=== PATIENT | male | born 1985 | race Asian ===

== ENCOUNTER → 2021-03-16 | Outpatient (CLI) | payer OTHER ==
--- NOTE | 2021-03-16 17:35 | CONS ---
CONSULTATION DATE OF SERVICE: 03/16/2021 This 35-year-old gentleman has been evaluated in the sleep center for possible obstructive sleep apnea-hypopnea syndrome. HISTORY OF PRESENT ILLNESS/SLEEP-WAKE EVALUATION: Patient's usual sleep schedule is from 10 p.m. to 4 a.m. on weekdays and from midnight until 4 or 5 a.m. on weekends. Sometimes he has problems with falling asleep. He has a TV set in the bedroom. He sleeps on the side position. His has loud snoring and witnessed episodes of stopped breathing during sleep. The patient wakes up from sleep 3 times with nocturia, episodes of dry mouth, heartburn, gasping for air. Patient also grinds his teeth. In the morning the patient wakes up tired, has difficulties paying attention, falling asleep during the day, has problems with memory, concentration, irritability, depression, anxiety and sexual dysfunction. He may take up to 2 naps a day around 1 p.m. No history of hypnagogic hallucinations, sleep paralysis or cataplexy. Noble Sleepiness Scale is in a very high range at 18. PAST MEDICAL HISTORY: Positive for acid reflux and some borderline levels of blood sugar, anxiety and seasonal allergies. PAST SURGICAL HISTORY: None. MEDICATIONS: Omeprazole once a day 40 mg. SOCIAL HISTORY: Occasional smoker. Alcohol consumption occasional. Also patient is using marijuana. FAMILY HISTORY: Diabetes. REVIEW OF SYSTEMS: No fevers. No double vision. No recent chest pain. No shortness of breath. No abdominal pain. No bleeding episodes. No blood in the urine. No seizure episodes. Awakenings from sleep, feeling sleepy during the day. PHYSICAL EXAMINATION: GENERAL: A pleasant 35-year-old gentleman without distress. VITAL SIGNS: BP 127/80, HR 91, RR 16, height 5 feet 8 inches, weight 230.6, temperature 97.4, oxygen saturation at room air 98%. Body mass index 34.9. HEENT: PERRLA, EOMI. Evaluation of oropharynx showed tongue protrudes midline. Extremely low position of soft palate. Mallampati IV. NECK: Supple. No JVD. Thyroid is not palpable. Neck is wide, measures 17-1/2 inches in circumference. LUNGS: Clear to percussion and to auscultation. Good air exchange. No wheezing or rhonchi. HEART: S1, S2 regular. No murmurs, gallops or rubs. ABDOMEN: Slightly obese. EXTREMITIES: No clubbing or cyanosis. STONE GANG SAWYER: Awake, alert, and oriented X3. Cranial nerves 2 to 7 intact. There is no fasciculation or atrophy. noted. No focal deficits observed. IMPRESSION: 1. Loud snoring, awakenings from sleep with stopped breathing and gasping for air, extremely low position of soft palate, Mallampati IV, wide neck, 17-1/2 inches in circumference, sleepiness; obstructive sleep apnea-hypopnea syndrome. 2. Significant excessive daytime sleepiness by results of Noble Sleepiness Scale of 18, dictating necessity to include hypersomnia and narcolepsy in differential diagnosis. 3. Obesity. Body mass index 34.9. 4. Acid reflux. 5. History of anxiety. 6. Seasonal allergies. PLAN: 1. Polysomnography for evaluation of patient's breathing during sleep. 2. CPAP/BiPAP titration if sleep study confirms obstructive sleep apnea-hypopnea syndrome. 3. Preferable position during sleep on the side. 4. No driving if patient feels any sleepiness. 5. I will see patient for follow up visit to explain results of testing and following plan. 6. Patient may need a multiple sleep latency test for objective evaluation of patient's symptoms of excessive daytime sleepiness in case treatment of sleep apnea does not normalize his alertness. Thank you very much for referring this patient for consultation. Sincerely, Deandre Silverman MD, PhD, FAASM Diplomat of [employer] [place] [employer] of [facility] [place] MMODL / IJN: [id number] /
== END ==
LOC: SLEEP 15:36
PROVIDERS: ATTEND Internal Medicine
DX: G47.33 Obstructive sleep apnea (adult) (pediatric) (principal); E66.01 Morbid (severe) obesity due to excess calories; Z68.34 Body mass index [BMI] 34.0-34.9, adult; K21.9 Gastro-esophageal reflux disease without esophagitis; J30.2 Other seasonal allergic rhinitis
CPT/HCPCS: 99202

== ENCOUNTER 2022-11-07 20:05 | Observation (INO) | payer OTHER ==
[2022-11-07] MEDS ORDERED: METOCLOPRAMIDE 5 MG/ML 2 ML VIAL IVP STA (20:47)
[2022-11-07] MEDS ORDERED: SODIUM CHLORIDE 0.9% 1,000 ML IV STA (20:47)
[2022-11-07] MEDS ORDERED: ORPHENADRINE 30 MG/ML 2 ML VIAL IVP STA (20:49)
--- NOTE | 2022-11-07 22:00 | CT ---
EXAMINATION TYPE: CT angio head neck CT DLP: 2099.1 mGycm, Automated exposure control for dose reduction was used. DATE OF EXAM: 11/07/2022 9:43 PM COMPARISON: None available CLINICAL INDICATION:Male, 37 years old with history of chronic headaches TECHNIQUE: Axially acquired helical CT angiogram of the head and neck was obtained with contrast util izing 65 cc of Isovue-370 administered intravenously. Axial images are supplemented with 3D reconstru ctions which were post-processed at an independent workstation. NASCET criteria used. FINDINGS: CTA HEAD: No evidence of mass effect or midline shift. The ventricles, sulci, and cisterns are unremarkable. Th ere is a 1.1 cm hyperdense region suggested within the anterior medial right frontal lobe (series 201 , image 32). No definitive enhancement on postcontrast imaging. The visualized portions of the internal carotid arteries, middle cerebral arteries, anterior cerebral arteries, and posterior cerebral arteries are patent. The basilar and vertebral arteries are patent. CTA NECK: Right Carotid System: The common carotid artery and external carotid artery are patent. The carotid bifurcation demonstrate s no evidence of hemodynamically significant stenosis. The remaining portions of the internal carotid artery demonstrate normal size without significant narrowing. Left Carotid System: The common carotid artery and external carotid artery are patent. The carotid bifurcation demonstrate s no evidence of hemodynamically significant stenosis. The remaining portions of the internal carotid artery demonstrate normal size without significant narrowing. Vertebral arteries are patent without evidence hemodynamically significant stenosis. Left vertebral a rtery is dominant. Bovine arch. The origins of the great vessels are patent. No evidence of hemodynamically significant stenosis. IMPRESSION: 1. No evidence of dissection of the cervical internal carotid arteries or vertebral arteries or any e vidence of significant stenosis at the carotid bifurcations. 2. No evidence of high-grade stenosis or intracranial aneurysm. 3. There is suggested 1.1 cm hyperdense region within the anterior medial right frontal lobe (series 201, image 32). No definitive enhancement on postcontrast imaging. This could represent artifact vers us other etiologies such as cortical laminar necrosis. Correlation with MRI with and without IV contr ast is recommended.
[2022-11-07 22:02] LABS: Basophils % (A) 0 %; Eosinophils # (A) 0.1 k/uL (0-0.7); Eosinophils % (A) 1 %; HCT 41.1 % (39.0-53.0); Lymphocytes # (A) 1.2 k/uL (1.0-4.8); Lymphocytes % (A) 15 %; MCH 27.4 pg (25.0-35.0); MCHC 34.2 g/dL (31.0-37.0); Mean Platelet Volume 7.8; Monocytes # (A) 0.1 k/uL (0-1.0); Monocytes % (A) 1 %; Neutrophils # (A) 6.8 k/uL (1.3-7.7); Neutrophils % (A) 83 %; Platelet Count 268 k/uL (150-450); RBC 5.13 m/uL (4.30-5.90); RDW 13.1 % (11.5-15.5); WBC 8.3 k/uL (3.8-10.6)
[2022-11-07 22:22] LABS: ALT 105 U/L (4-49); AST 48 U/L (17-59); African American GFR (CKD) >90 (>60 ml/min/1.73 sqM); Albumin 4.2 g/dL (3.5-5.0); Alkaline Phosphatase 92 U/L (38-126); Anion Gap 10 mmol/L; Blood Urea Nitrogen 14 mg/dL (9-20); C Reactive Protein 0.9 mg/dL (<1.0); Calcium 9.2 mg/dL (8.4-10.2); Carbon Dioxide 24 mmol/L (22-30); Chloride 103 mmol/L (98-107); Glucose 173 mg/dL (74-99); Non-African American GFR(CKD) >90 (>60 ml/min/1.73 sqM); Potassium 4.5 mmol/L (3.5-5.1); Sodium 137 mmol/L (137-145); Total Bilirubin 0.5 mg/dL (0.2-1.3); Total Protein 7.6 g/dL (6.3-8.2)
[2022-11-07] MEDS ORDERED: NALOXONE 0.4 MG/ML 1 ML VIAL IV PRN (22:35)
[2022-11-07] MEDS ORDERED: ACETAMINOPHEN TAB 325 MG TAB PO PRN (22:35)
[2022-11-07] MEDS ORDERED: HYDROmorphone 2 MG TAB PO PRN (22:35)
[2022-11-07] MEDS ORDERED: ONDANSETRON 4 MG/2 ML VIAL IVP PRN (22:35)
--- NOTE | 2022-11-07 22:42 | ED ---
Headache HPI - General Chief Complaint: Headache Stated Complaint: Headache Time Seen by Provider: 11/07/22 20:26 Mode of arrival: ambulatory Limitations: no limitations - History of Present Illness Initial Comments: Patient is a 37-year-old male presenting with chief complaint of headache. Patient states that he has had migraine headaches for years, however over the past few months they have grown worse and more consistent. Patient states that he has daily severe headaches. He is taking Motrin and Tylenol daily without relief. Admits to intermittent nausea and vomiting. Patient is following with neurology, his appointment was canceled today and due to his severe pain he reportedly [facility]. He had a CT performed which showed a subtle hypodensity within the centrum semiovale right frontal lobe. He was not satisfied with the care he was receiving there, he requested his records reported to our ER for further evaluation. He denies any numbness, tingling, vision or hearing changes, fever, chills, chest pain, difficulty breathing, palpitations, syncope, seizures. - Related Data Allergies Allergy/AdvReac Type Severity Reaction Status Date / Time No Known Allergies Allergy Verified 11/07/22 20:20 Review of Systems ROS Statement: Those systems with pertinent positive or pertinent negative responses have been documented in the HPI. ROS Other: All systems not noted in ROS Statement are negative. Past Medical History Past Medical History: GERD/Reflux Additional Past Medical History / Comment(s): migraine, History of Any Multi-Drug Resistant Organisms: None Reported Past Surgical History: No Surgical Hx Reported Past Psychological History: No Psychological Hx Reported Smoking Status: Never smoker Past Alcohol Use History: Daily Past Drug Use History: Marijuana General Exam Limitations: no limitations General appearance: alert, in no apparent distress Head exam: Present: atraumatic, normocephalic, normal inspection Eye exam: Present: normal appearance, PERRL, EOMI. Absent: scleral icterus, conjunctival injection, periorbital swelling Pupils: Present: normal accommodation Neck exam: Present: normal inspection, full ROM. Absent: tenderness, meningismus Respiratory exam: Present: normal lung sounds bilaterally. Absent: respiratory distress, wheezes, rales, rhonchi, stridor Cardiovascular Exam: Present: regular rate, normal rhythm, normal heart sounds. Absent: systolic murmur, diastolic murmur, rubs, gallop, clicks Extremities exam: Present: normal inspection, full ROM Neurological exam: Present: alert, oriented X3, CN II-XII intact Expanded Patient oriented to: Present: person, place, time Speech: Present: fluid speech Cranial nerves: EOM's Intact: Normal, Facial Sensation: Normal Sensory exam: Upper Extremity Light Touch: Normal, Lower Extremity Light Touch: Normal Motor strength exam: RUE: 5, LUE: 5, RLE: 5, LLE: 5 Eye Response: (4) open spontaneously Motor Response: (6) obeys commands Verbal Response: (5) oriented [place] Total: 15 Psychiatric exam: Present: normal affect, normal mood Skin exam: Present: warm, dry, intact, normal color. Absent: rash Course Vital Signs 11/07/22 20:15 Temperature 97.6 F Pulse Rate 72 Respiratory 18 Rate Blood Pressure 131/80 O2 Sat by Pulse 96 Oximetry Medical Decision Making - Medical Decision Making Was pt. sent in by a medical professional or institution (, PA, STORM WINDOW INSTALLER, urgent care, hospital, or long term...) When possible be specific @ -No Did you speak to anyone other than the patient for history (EMS, parent, family, police, friend...)? What history was obtained from this source @ -No Did you review nursing and triage notes (agree or disagree)? Why? @ -I reviewed and agree with nursing and triage notes Were old charts reviewed (outside hosp., previous admission, EMS record, old EKG, old radiological studies, urgent care reports/EKG's, long term records)? Report findings @ -No old charts were reviewed Differential Diagnosis (chest pain, altered mental status, abdominal pain women, abdominal pain men, vaginal bleeding, weakness, fever, dyspnea, syncope, headache, dizziness, GI bleed, back pain, seizure, CVA, palpatations, mental health)? @ -MDM Differential Headache: Migraine, tension, cluster, carbon monoxide, central venous thrombosis, pension karma temporal arteritis, acute closure glaucoma, intercranial hemorrhage, mastoiditis, sinusitis, head injury this is not meant to be an all-inclusive list. EKG interpreted by me (3pts min.). @ -As above X-rays interpreted by me (1pt min.). @ -None done CT interpreted by me (1pt min.). @ -No, Radiologist report is reviewed. There is suggested 1.1 cm hyperdense region within the anterior medial right frontal lobe. No definitive enhancement on postcontrast imaging. This could represent artifact versus other etiologies such as cortical laminar necrosis correlation with MRI with and without IV contrast is recommended. No evidence of high-grade stenosis or intracranial aneurysm. No evidence of dissection of the cervical internal U/S interpreted by me (1pt. min.). @ -None done What testing was considered but not performed or refused? (CT, X-rays, U/S, labs)? Why? @ -None What meds were considered but not given or refused? Why? @ -None Did you discuss the management of the patient with other professionals (professionals i.e. Dr., PA, STORM WINDOW INSTALLER, lab, RT, psych nurse, social organization professor, sports lawyer, teacher, learning and development officer, director of casework)? Give summary @ -Discussed with neurologist Dr. Gold and admitting physician Dr. Nuno Was smoking cessation discussed for >3mins.? @ -No Was critical care preformed (if so, how long)? @ -No Were there social determinants of health that impacted care today? How? (Homelessness, low income, unemployed, alcoholism, drug addiction, transportation, low edu. Level, literacy, decrease access to med. care, fdc, rehab)? @ -No Was there de-escalation of care discussed even if they declined (Discuss DNR or withdrawal of care, Hospice)? DNR status @ -No What co-morbidities impacted this encounter? (DM, HTN, Smoking, COPD, CAD, Ca ncer, CVA, ARF, Chemo, Hep., AIDS, mental health diagnosis, sleep apnea, morbid obesity)? @ -None Was patient admitted / discharged? Hospital course, mention meds given and route, prescriptions, significant lab abnormalities, going to OR and other pertinent info. @ -She is a 37-year-old male presenting with chief complaint of headache. Esme castaneda was evaluated at [facility] today for the same complaint, was noted to have a hypodense area of the frontal lobe on CT, patient left as he was not pleased with his care there. On physical examination there are no focal neurological deficits. Patient is continuing to complain of headache despite receiving Dilaudid, Toradol, Solu-Medrol, Benadryl, Zofran, and Fioricet at [facility]. CTA showed 1.1 cm hyperdense region within the frontal lobe. I discussed this finding with neurologist personnel associate Dr. Gold, he recommended admission for further evaluation and MRI. Patient is agreeable with this plan. I spoke with Dr. Nuno who accepted admission. Dr. Gold was placed on consult. I discussed this case with my attending Dr. Crystal. Undiagnosed new problem with uncertain prognosis? @ -No Drug Therapy requiring intensive monitoring for toxicity (Heparin, Nitro, Insulin, Cardizem)? @ -No Were any procedures done? @ -No Diagnosis/symptom? @ -Intractable headache with abnormal CT Acute, or Chronic, or Acute on Chronic? @ -Acute Uncomplicated (without systemic symptoms) or Complicated (systemic symptoms)? @ -Complicated Side effects of treatment? @ -No Exacerbation, Progression, or Severe Exacerbation? @ -No Poses a threat to life or bodily function? How? (Chest pain, [place], [place], pneumonia, PE, COPD, DKA, ARF, appy, cholecystitis, CVA, Diverticulitis, Homicidal, Suicidal, threat to staff... and all critical care pts) @ -Potentially, further neurology workup is needed - Lab Data Result diagrams: 11/07/22 21:50 11/07/22 21:50 Lab Results 11/07/22 11/07/22 Range/Units 21:50 21:50 WBC 8.3 (3.8-10.6) k/uL RBC 5.13 (4.30-5.90) m/uL Hgb 14.0 (13.0-17.5) gm/dL Hct 41.1 (39.0-53.0) % MCV 80.0 (80.0-100.0) fL MCH 27.4 (25.0-35.0) pg MCHC 34.2 (31.0-37.0) g/dL RDW 13.1 (11.5-15.5) % Plt Count 268 (150-450) k/uL MPV 7.8 Neutrophils % 83 % Lymphocytes % 15 % Monocytes % 1 % Eosinophils % 1 % Basophils % 0 % Neutrophils # 6.8 (1.3-7.7) k/uL Lymphocytes # 1.2 (1.0-4.8) k/uL Monocytes # 0.1 (0-1.0) k/uL Eosinophils # 0.1 (0-0.7) k/uL Basophils # 0.0 (0-0.2) k/uL Sodium 137 (137-145) mmol/L Potassium 4.5 (3.5-5.1) mmol/L Chloride 103 (98-107) mmol/L Carbon Dioxide 24 (22-30) mmol/L Anion Gap 10 mmol/L BUN 14 (9-20) mg/dL Creatinine 0.82 (0.66-1.25) mg/dL Est GFR (CKD-EPI)AfAm >90 (>60 ml/min/1.73 sqM) Est GFR (CKD-EPI)NonAf >90 (>60 ml/min/1.73 sqM) Glucose 173 H (74-99) mg/dL Calcium 9.2 (8.4-10.2) mg/dL Total Bilirubin 0.5 (0.2-1.3) mg/dL AST 48 (17-59) U/L ALT 105 H (4-49) U/L Alkaline Phosphatase 92 (38-126) U/L C-Reactive Protein 0.9 (<1.0) mg/dL Total Protein 7.6 (6.3-8.2) g/dL Albumin 4.2 (3.5-5.0) g/dL Disposition Clinical Impression: Intractable headache, Abnormal CT of brain Disposition: ADMITTED IP TO THIS [facility] Condition: Fair Referrals: Vinicio Fried MD [Primary Care Provider] - 1-2 days Time of Disposition: 22:40 Decision to Admit Reason: Admit from EC Decision Date: 11/07/22 Decision Time: 22:40
[2022-11-07 22:48] LABS: Erythrocyte Sedimentation Rate 25 mm/hr (0-15)
[2022-11-07] MEDS: HYDROmorphone 1 MG/ML 1 ML SYRINGE IVP PRN (23:56)
[2022-11-08 08:49] VITALS: RESP 16
[2022-11-08] MEDS: HYDROmorphone 1 MG/ML 1 ML SYRINGE IVP PRN ×3 (09:14→23:28)
[2022-11-08] MEDS ORDERED: diphenhydrAMINE 50 MG/ML 1 ML VIAL IVP STA (10:08)
[2022-11-08] MEDS ORDERED: PROCHLORPERAZINE INJ 10 MG/2 ML VIAL IVP STA (10:09)
[2022-11-08] MEDS ORDERED: methylPREDNISolone SOD SUCCIN 500 MG in SODIUM CHLORIDE 0.9% 100 ML IVPB STA (10:14)
--- NOTE | 2022-11-08 10:23 | P.CNNES ---
History of Present Illness Consult date: 11/08/22 Requesting physician: Keon Ho Reason for Consult: intractable headache, abnormal CT History of Present Illness: This is a 37-year-old gentleman who presented to our facility because of headache. According to the patient that he's been having headache for years and it's over the bilateral frontal region that radiates to the back of the brain. He feels is almost on a daily basis and it's throbbing, applicant sensation at. He does have photophobia, phonophobia. He has occasional nausea and vomiting in the past. He rates the headache currently is 10 and he states that he can get up to 10 again he's been having for years and he feels somewhat worsening in the last couple days. The headache can last for hours to days. He has been taking [id number] medication of Aleve. He was evaluated by his neurologist about a month ago Dr. Harvey and he was placed on propranolol and he is on propranolol 60 mg daily for headache prevention. Also he was on neurogenic as an abortive and he stated that as there is no benefit from it. It seems that his insurance declined at CT of the head as well as MRI as an outpatient because of his insurance according to the patient. Because of his worsening of the headache he notified his neurologist yesterday and she told him not to go the emergency department. He went to an outside facility ([facility]) and that according to patient he was given migraine cocktail and as well as had the CT of the brain but he was waiting in the room for hours and he was not being evaluated afterwards so he left the hospital and decided to come to our facility. She stated that that he denies of any focal weakness, visual disturbance, difficulty walking, difficulty swallowing or getting his words out. He denies any aura prior to the headache. Denies any family history of migraine. Some of the workup during our facility consisted of: ESR is 25 otherwise CBC with differential is unremarkable Chemistry panel seems unremarkable and the CRP is within normal limits. CT angiography of the head and neck is reported as no evidence of dissection of the cervical internal carotid arteries or vertebral arteries or any evidence of significant stenosis at the carotid bifurcation. No evidence of high-grade stenosis or intracranial aneurysm. There is suggested 1.1 cm hyperdense region in the anterior medial right frontal lobe. No definite of enhancement on post contrast imaging. This could represent artifact versus other etiologies such as cortical laminar necrosis. Correlation with MRI with and without is recommended. According to the patient this finding was similar to the outside hospital finding he had yesterday. Review of Systems Review of system: The 12 point system was reviewed and apparent positive and negative per HPI. Past Medical History Past Medical History: GERD/Reflux Additional Past Medical History / Comment(s): migraine, History of Any Multi-Drug Resistant Organisms: None Reported Past Surgical History: No Surgical Hx Reported Additional Past Surgical History / Comment(s): foot rash Additional Past Anesthesia/Blood Transfusion Reaction / Comment(s): pt has never recieved Past Psychological History: No Psychological Hx Reported Smoking Status: Never smoker Past Alcohol Use History: Daily Past Drug Use History: Marijuana Medications and Allergies Home Medications Medication Instructions Recorded Confirmed Type ALPRAZolam [Xanax] 0.5 mg PO TID PRN 11/08/22 11/08/22 History Ammonium Lactate Lotion 1 applic TOPICAL BID PRN 11/08/22 11/08/22 History [Lac-Hydrin 12% Lotion] Cholecalciferol [Vitamin D3 (25 50 mcg PO DAILY 11/08/22 11/08/22 History Mcg = 1000 Iu)] Ciclopirox Olamine [Loprox 0.77% 1 applic TOPICAL BID PRN 11/08/22 11/08/22 History cream] Clobetasol Propionate [Temovate 1 applic TOPICAL BID PRN 11/08/22 11/08/22 History 0.05% Cream] Gentamicin Sulfate [Gentamicin 1 applic TOPICAL BID PRN 11/08/22 11/08/22 History Sulfate 0.1%] Magnesium Chloride [Slow-Mag] 64 mg PO DAILY 11/08/22 11/08/22 History Omeprazole 40 mg PO AC-BRKFST 11/08/22 11/08/22 History Pimecrolimus [Elidel] 1 applic TOPICAL BID PRN 11/08/22 11/08/22 History Pregabalin [Lyrica] 50 mg PO BID 11/08/22 11/08/22 History Propranolol LA [Inderal LA] 60 mg PO DAILY 11/08/22 11/08/22 History hydrOXYzine HCL [Atarax] 10 mg PO HS PRN 11/08/22 11/08/22 History Allergies Allergy/AdvReac Type Severity Reaction Status Date / Time cat dander Allergy Dyspnea Verified 11/08/22 08:42 dog dander Allergy Dyspnea Verified 11/08/22 08:42 seasonal Allergy Dyspnea Uncoded 11/08/22 08:42 Physical Examination - Vital Signs Vital Signs: Vital Signs Temp Pulse Pulse Resp BP BP Pulse Ox 11/08/22 07:00 98.9 F 69 16 122/67 97 11/08/22 02:44 97.7 F 66 15 106/55 98 11/08/22 01:28 17 11/07/22 23:37 97.8 F 67 17 118/74 96 11/07/22 22:20 71 16 118/67 96 11/07/22 20:15 97.6 F 72 18 131/80 96 Intake and Output 11/07/22 11/08/22 11/08/22 22:59 06:59 14:59 Intake Total 240 Balance 240 Intake: Oral 240 Other: # Voids 2 Weight 104.326 kg GENERAL: The patient is lying in bed and is in moderate acute distress. CHEST: The heart rate is regular rate rhythm. No murmurs to auscultation. LUNG: Clear to auscultation bilaterally no wheezing noted throughout. Not labored breathing. ABDOMEN/GI: Bowel sounds present in all 4 quadrants. No tenderness to palpation throughout. NEUROLOGICAL: Higher mental function: The patient is awake, alert, oriented to self, place and time. Patient is following commands. No aphasia and no neglect. Cranial nerves: Has moderate to severe photophobia and kept on closing his eyes to light. But the pupils are round, equal and reactive to light and accommod ation. Unable to perform fundoscopy since has kept closing his eyes. Visual zarate are full to confrontation throughout. Extraocular movement is intact no nystagmus is noted. Facial sensation is normal to touch throughout. The facial strength is normal throughout. Hearing is normal bilaterally to hand rub. Tongue is midline and moved [id number] without any difficulty. No dysarthria is noted. Shoulder shrug is normal bilaterally. Motor: Gait is normal. The strength is 5 over 5 throughout. Normal tone and bulk. Cerebellum: Normal finger to nose heel to chin bilaterally. Sensation: Sensation is normal to touch throughout. Reflexes (right/left): 2+ throughout. Plantars are downgoing bilaterally. Results - Laboratory Findings CBC and BMP: 11/07/22 21:50 11/07/22 21:50 Abnormal Lab Findings: Abnormal Labs 11/07/22 11/07/22 21:50 21:50 ESR 25 H Glucose 173 H ALT 105 H Assessment and Plan Assessment: Status Migrainosus History of migraine without aura for years Fibromyalgia Hypertension Plan: I ordered MRI of the brain w/ and w/o because of the abnormal finding on CT angiography which the there was 1.1 cm hyperdense region in the anterior medial right frontal lobe which could be artifact versus cortical laminar necrosis that's reported. I started the patient on Topamax 50 mg 1 tablet twice a day as a migraine prophylaxis and the patient was notified of the side effects of the medication. I notified him that he can take prophylaxis of gabapentin as abortive and that helps also with neuropathy and neck to be coordinated with his neurologist as an outpatient since he's already on Lyrica. I gave him a migraine cocktail of Compazine, Solu-Medrol and Benadryl. Defer the rest of the medical management to the primary team Upon discharge patient needs to follow-up with his neurologist as an outpatient within 1-2 weeks, Dr. Harvey. The plan was discussed with the patient and the the primary team's nurse practitioner Thank you for the Consultation Time with Patient: Greater than 30
[2022-11-08] MEDS: TOPIRAMATE 25 MG TAB PO SCH ×2 (10:38→19:58)
[2022-11-08] MEDS ORDERED: ALPRAZolam 0.5 MG TAB PO STA (12:19)
[2022-11-08] MEDS ORDERED: LORazepam 2 MG/ML INJ IV PRN (12:19)
[2022-11-08] MEDS: KETOROLAC 15 MG/ML 1 ML VIAL IVP PRN (14:40)
--- NOTE | 2022-11-08 15:48 | P.HPIM ---
History of Present Illness H&P Date: 11/08/22 This is a 37-year-old male who presented to the emergency department with complaints of headache. Patient does have history of migraine headaches however they have been becoming more persistent and worse over the last few months. Patient reports he follows with Dr. Fried in the outpatient setting with a past medical history of hypertension and migraines. Patient also reports he follows with Dr. Harvey neurologist. Patient was at [facility] and did not like her appreciate the care he was receiving as patient reports "lack of care "and decided to leave and came to this hospital for further evaluation. In the ER patient had a CT angiography of head and neck which showed no evidence of diss ection of the cervical internal carotid arteries or vertebral arteries are any evidence of significant stenosis at the carotid bifurcations, no evidence of high-grade stenosis or intracranial aneurysm, there is a suggested 1.1 cm hyperdense region within the anterior medial right frontal lobe with no definitive enhancement on postcontrast and no definitive enhancement on postcontrast imaging could represent artifact versus other etiologies such as cortical laminar necrosis and correlate with MRI. Patient was admitted with neurology evaluation. Neurology evaluated this morning ordered MRI which is pending. Labs reviewed on admission is within normal limits other than an ESR of 25 and blood glucose is 173 and ALT is 105. CRP is negative. Patient denies history of diabetes although random blood sugar was elevated and will obtain hemoglobin A1c. Patient denies tobacco use or illicit drug use other than smokes marijuana occasionally and uses alcohol daily. Patient was admitted under observation for neurological evaluation. Review Of Systems: Constitutional: No fever, no chills, no night sweats. No weight change. No weakness, fatigue or lethargy. No daytime sleepiness. EENT: Reports headache that are becoming more frequent and increased in intensity. No blurred vision or double vision, no loss of vision. No loss of Hearing, no ringing in the ears, no dizziness. No nasal drainage or congestion. No epistaxis. No sore throat. Lungs: No shortness of breath, cough, no sputum production. No wheezing. Cardiovascular: No chest pain, no lower extremity edema. No palpitations. No paroxysmal nocturnal dyspnea. No orthopnea. No lightheadedness or dizziness. No syncopal episodes. Abdominal: No abdominal pain. No nausea, vomiting. No diarrhea. No constipation. No bloody or tarry stools.. No loss of appetite. Genitourinary: No dysuria, increased frequency, urgency. No urinary retention. Musculoskeletal: No myalgias. No muscle weakness, no gait dysfunction, no frequent falls. No back pain. No neck pain. Integumentary: No wounds, no lesions. No rash or pruritus. No unusual bruising. No change in hair or nails. Neurologic: No aphasia. No facial droop. No change in mentation. No head injury. Reports more intense headache and more frequent migraines. No paralysis. No paresthesia. Psychiatric: No depression. Reports anxiety. No mood swings. Endocrine: No abnormal blood sugars. No weight change. No excessive sweating or thirst. No cold intolerance. PHYSICAL EXAMINATION: GENERAL: The patient is alert and oriented x4, Well developed, well nourished. Obese HEENT: Pupils are round and equally reacting to light. EOMI. no scleral icterus. No conjunctival pallor. Normocephalic, atraumatic. No pharyngeal erythema. No thyromegaly. CARDIOVASCULAR: S1 and S2 muffled PULMONARY: Breath sounds clear to auscultation with no wheezing or rhonchi noted. ABDOMEN: soft. Nontender on exam. obese. non-distended, normoactive bowel sounds. No palpable organomegaly. MUSCULOSKELETAL: No joint swelling or deformity. EXTREMITIES: No cyanosis, clubbing, or pedal edema. NEUROLOGICAL: Gross neurological examination did not reveal any focal deficits. SKIN: No rashes. Assessment: Intractable Headache with history of migraines Gastroesophageal reflux disease THC use Hypertension Elevated random glucose with no history of diabetes Anxiety Obesity with a BMI of 33 GI prophylaxis DVT prophylaxis Full code Plan: Recommend to continue with current medications and management with neurology on consultation. Patient was at [facility] had a CT of the brain which showed a hyperdensity of the frontal lobe and had CT angiogram of the head and neck here showing a 1.1 cm hyperdensity in the anterior medial right frontal lobe and neurology recommending MRI. MRI was ordered and pending at this time. Patient does have anxiety will order Xanax and given a one-time dose so the MRI can be done. Unsure of when this will be done sometime today nursing staff reported. Patient was given a migraine cocktail of Solu-Medrol, Benadryl, and Compazine. Patient being started on Topamax as well. Patient instructed to follow-up with his neurologist Dr. Harvey in the outpatient setting. Will await MRI and if negative will likely discharge later today. Patient did have a elevated random glucose on labs of 173 with no history of diabetes, will obtain hemoglobin A1c. Will await MRI report which is currently pending at this time. The impression and plan of care has been dictated by Shanon Severino, nurse practitioner as directed. Dr. Mary GAY I have performed a history and examination and MDM of this patient, discussed t he same with the dictator, and agree with the dictator's assessment and plan as written ,documented as a scribe. Based on total visit time, I have performed more than 50% of the visit. Any additional findings or plans will be noted. Past Medical History Past Medical History: GERD/Reflux Additional Past Medical History / Comment(s): migraine, History of Any Multi-Drug Resistant Organisms: None Reported Past Surgical History: No Surgical Hx Reported Additional Past Surgical History / Comment(s): foot rash Additional Past Anesthesia/Blood Transfusion Reaction / Comment(s): pt has never recieved Past Psychological History: No Psychological Hx Reported Smoking Status: Never smoker Past Alcohol Use History: Daily Past Drug Use History: Marijuana Medications and Allergies Home Medications Medication Instructions Recorded Confirmed Type ALPRAZolam [Xanax] 0.5 mg PO TID PRN 11/08/22 11/08/22 History Ammonium Lactate Lotion 1 applic TOPICAL BID PRN 11/08/22 11/08/22 History [Lac-Hydrin 12% Lotion] Cholecalciferol [Vitamin D3 (25 50 mcg PO DAILY 11/08/22 11/08/22 History Mcg = 1000 Iu)] Ciclopirox Olamine [Loprox 0.77% 1 applic TOPICAL BID PRN 11/08/22 11/08/22 History cream] Clobetasol Propionate [Temovate 1 applic TOPICAL BID PRN 11/08/22 11/08/22 History 0.05% Cream] Gentamicin Sulfate [Gentamicin 1 applic TOPICAL BID PRN 11/08/22 11/08/22 History Sulfate 0.1%] Magnesium Chloride [Slow-Mag] 64 mg PO DAILY 11/08/22 11/08/22 History Omeprazole 40 mg PO AC-BRKFST 11/08/22 11/08/22 History Pimecrolimus [Elidel] 1 applic TOPICAL BID PRN 11/08/22 11/08/22 History Pregabalin [Lyrica] 50 mg PO BID 11/08/22 11/08/22 History Propranolol LA [Inderal LA] 60 mg PO DAILY 11/08/22 11/08/22 History hydrOXYzine HCL [Atarax] 10 mg PO HS PRN 11/08/22 11/08/22 History Allergies Allergy/AdvReac Type Severity Reaction Status Date / Time cat dander Allergy Dyspnea Verified 11/08/22 08:42 dog dander Allergy Dyspnea Verified 11/08/22 08:42 seasonal Allergy Dyspnea Uncoded 11/08/22 08:42 Physical Exam Vitals: Vital Signs Temp Pulse Pulse Resp BP BP Pulse Ox 11/08/22 07:00 98.9 F 69 16 122/67 97 11/08/22 02:44 97.7 F 66 15 106/55 98 11/08/22 01:28 17 11/07/22 23:37 97.8 F 67 17 118/74 96 11/07/22 22:20 71 16 118/67 96 11/07/22 20:15 97.6 F 72 18 131/80 96 Intake and Output 11/07/22 11/08/22 11/08/22 22:59 06:59 14:59 Intake Total 240 Balance 240 Intake: Oral 240 Other: # Voids 2 Weight 104.326 kg Results CBC & Chem 7: 11/07/22 21:50 11/07/22 21:50 Labs: Abnormal Lab Results - Last 24 Hours (Table) 11/07/22 11/07/22 Range/Units 21:50 21:50 ESR 25 H (0-15) mm/hr Glucose 173 H (74-99) mg/dL ALT 105 H (4-49) U/L Thrombosis Risk Factor Assmnt - Choose All That Apply Any of the Below Risk Factors Present?: Yes Each Factor Represents 1 point: Obesity (BMI >25) Other Risk Factors: No Other congenital or acquired thrombophilia - If yes, enter type in comment: No Thrombosis Risk Factor Assessment Total Risk Factor Score: 1 Thrombosis Risk Factor Assessment Level: Low Risk Assessment and Plan Time with Patient: Greater than 30
--- NOTE | 2022-11-08 15:56 | MR ---
EXAMINATION TYPE: MR brain wo/w con DATE OF EXAM: 11/08/2022 3:48 PM CLINICAL INDICATION:Male, 37 years old with history of headache with abnormal CT; COMPARISON: CT head neck 11/07/2021. TECHNIQUE: Multi planar, multi sequence imaging was performed through the brain including: T1, T2, In version recovery, susceptibility weighted imaging and gradient echo imaging and Diffusion weighted im aging. The patient was then given intravenous contrast and multi planar, T1 fat-saturation images wer e obtained. IV Contrast: 9.5 cc Gadavist FINDINGS: Dilation of the ventricular systems which is equal bilateral. No evidence for transependymal edema to suggest hydrocephalus. Diffusion-weighted imaging shows no evidence of restricted diffusion to sugge st acute/subacute infarct. Intracranial arterial flow voids are maintained. Midline structures show n o abnormality. The susceptibility weighted images do not reveal any evidence for micro-hemorrhage. Af ter administration of gadolinium, no abnormal enhancement is seen. The bone marrow signal is within normal limits. Paranasal sinuses and mastoid air cells: Mild scattered paranasal sinus disease. Visualized orbits: Orbital contents are intact. IMPRESSION: 1. No finding to correlate with hypodense mass seen on CT. Finding likely enrollment representative of beam hard ening artifact 2. No evidence of intracranial mass, acute/subacute infarct, or abnormal enhancement. 3. Dilation of the ventricular systems which is more than would be excepted for a patient 37 years ol d, and no evidence for transependymal flow to suggest hydrocephalus.
[2022-11-09] MEDS: HYDROmorphone 1 MG/ML 1 ML SYRINGE IVP PRN (05:44)
[2022-11-09] MEDS: KETOROLAC 15 MG/ML 1 ML VIAL IVP PRN (08:47)
[2022-11-09] MEDS: TOPIRAMATE 25 MG TAB PO SCH (08:48)
[2022-11-09] MEDS ORDERED: SENNOSIDES 8.6 MG TAB PO SCH (09:00)
[2022-11-09] MEDS ORDERED: SUMAtriptan succinate 50 MG TAB PO STA (09:29)
[2022-11-09] MEDS ORDERED: BUTALB/APAP/CAFF 50-325-40MG TAB PO STA (09:29)
--- NOTE | 2022-11-09 11:50 | P.PN ---
Subjective Progress Note Date: 11/09/22 The patient is seen at bedside and states his headache has mildly improved compared to yesterday. Denies of nausea or vomiting. Denies of visual disturbance or focal deficits. He wanted to clarify that he has been having headache for years but worsening over past couple weeks to months. Patient is afebrile. Objective - Vital Signs Vital signs: Vital Signs Temp 97.9 F 11/09/22 07:00 Pulse 70 11/09/22 07:00 Resp 16 11/09/22 07:00 BP 121/77 11/09/22 07:00 Pulse Ox 100 11/09/22 07:00 FiO2 Intake & Output 11/08/22 11/09/22 11/09/22 18:59 06:59 18:59 Intake Total 240 Balance 240 Intake: Oral 240 Other: # Voids 4 2 - Exam GENERAL: The patient is lying in bed and is in moderate acute distress. NEUROLOGICAL: Higher mental function: The patient is awake, alert, oriented to self, place and time. Patient is following commands. No aphasia and no neglect. Cranial nerves: Has moderate photophobia and kept on closing his eyes to light. But the pupils are round, equal and reactive to light and accommodation. Unable to perform fundoscopy since has kept closing his eyes. Visual zarate are full to confrontation throughout. Extraocular movement is intact no nystagmus is noted. Facial sensation is normal to touch throughout. The facial strength is normal throughout. Hearing is normal bilaterally to hand rub. Tongue is midline and moved [id number] without any difficulty. No dysarthria is noted. Shoulder shrug is normal bilaterally. Motor: Gait is deferred. The strength is 5 over 5 throughout. Normal tone and bulk. Cerebellum: Normal finger to nose heel to chin bilaterally. Sensation: Sensation is normal to touch throughout. Reflexes (right/left): 2+ throughout. Plantars are downgoing bilaterally. Some of the workup during our facility consisted of: ESR is 25 otherwise CBC with differential is unremarkable Chemistry panel seems unremarkable and the CRP is within normal limits. CT angiography of the head and neck is reported as no evidence of dissection of the cervical internal carotid arteries or vertebral arteries or any evidence of significant stenosis at the carotid bifurcation. No evidence of high-grade stenosis or intracranial aneurysm. There is suggested 1.1 cm hyperdense region in the anterior medial right frontal lobe. No definite of enhancement on post contrast imaging. This could represent artifact versus other etiologies such as cortical laminar necrosis. Correlation with MRI with and without is recommended. According to the patient this finding was similar to the outside hospital finding he had yesterday. MRI the brain is reported as no findings correlate with hypodense mass seen on the CT. Findings likely contact representative of beam hardening artifact. No evidence of intracranial mass, acute/subacute infarct or abnormal enhancement. Dilation of the ventricular system which is more than will be expected for patient 37 years old, and no evidence for transfers at that time I'll flow to suggest hydrocephalus. I personally reviewed the MRI and I do agree there is no mass, enhancement, stroke that acute or subacute or old. I do feel it the ventricles are enlarged throughout more than his age and comparison to prior imaging. - Labs CBC & Chem 7: 11/07/22 21:50 11/07/22 21:50 Labs: Abnormal Lab Results - Last 24 Hours (Table) 11/09/22 Range/Units 05:14 Hemoglobin A1c 7.0 H (0.0-6.0) % Assessment and Plan Assessment: Status Migrainosus Enlarged diffuse ventricles compared to his age/hydrocephalus: Unknown cause. Unsure if chronic since has history of meningitis as child. History of migraine without aura for years but worsening over past couple weeks to months Fibromyalgia Hypertension Plan: I recommended Lumbar puncture to rule out elevated Intracranial pressure but patient refused Lumbar Puncture. He also refused later to the nurse. But agreed on pursing CT Cervical, thoracic and lumbar to rule out any spinal tumor. Patient has diffuse enlarge ventricles compared to his age/hydrocephalus of unknown cause. Unsure if chronic since has history of meningitis as child. If CT of spinal cord is negative for tumor or significant change then patient wants further neurological work-up with his outpatient neurologist. I will increase Topamax 50 mg 1 tablet twice a day to 100mg bid as a migraine prophylaxis and the patient was notified of the side effects of the medication. Will give him Imitrex 50mg once and spoke with primary N.P. with Imitrex 50mg with max dose of 9 tablets in a month. Also will give him Fioricet one time. Defer the rest of the medical management to the primary team Upon discharge patient needs to follow-up with his neurologist as an outpatient within 1-2 weeks, Dr. Harvey. The plan was discussed with the patient and the the primary team's nurse pr actitioner Time with Patient: Less than 30
[2022-11-09] MEDS ORDERED: KETOROLAC 15 MG/ML 1 ML VIAL IVP STA (11:59)
[2022-11-09 14:25] VITALS: BP 139/90; PULSE 82; TEMP 97.7
--- NOTE | 2022-11-09 15:31 | CT ---
EXAMINATION TYPE: CT CervThorLumbar spine wo/wco DATE OF EXAM: 11/09/2022 COMPARISON: MRI brain 11/08/2022 HISTORY: 37-year-old male Hydrocephalus. Rule out spinal tumor. TECHNIQUE: Contiguous axial scanning of the cervical, thoracic, and lumbar spine performed without an d with IV Contrast, patient injected with 70ml mL of Isovue 300. Coronal and sagittal reconstructions performed. CT DLP: 4939.9 mGycm Automated exposure control for dose reduction was used. FINDINGS: CERVICAL SPINE: Bilateral palatine tonsillar hypertrophy. Punctate calcifications in both sides suggests sequela of p rior infection. There is some degenerative change at the C1 dens articulation. No craniocervical junction, predental space widening, or prevertebral soft tissue swelling. Suspect old spinous process fracture T1. No acute fracture of the cervical spine. Mild degenerative disc disease mid to lower cervical spine. Alignment is maintained. Assessment of the spinal canal from C5-C6 and below is limited due to artifact from patient's shoulde rs. Mild facet arthropathy mid to lower cervical spine. No significant spinal canal stenosis is evident. THORACIC SPINE: There are 12 rib-bearing thoracic vertebral bodies. Scattered mild degenerative disc disease throughout. Particular limitation of the spinal canal from T9 through T12 levels due to patient size. Along the other levels, no obvious large focal disc herniation or geneva canal compromise. No obvious enhancing mass within the spinal canal. Facet adenopathy mid to lower thoracic spine. This results in mild narrowing of the neuroforamen on b oth sides at T9-T10 and on the left at and T8-T9. The visualized lungs are clear. LUMBAR SPINE: Mild degenerative disc disease particularly at L3-L4. Disc bulge here may contribute to mild narrowin g of the spinal canal. No significant neuroforaminal stenosis is seen. Vertebral body heights are preserved and alignment is maintained. Due to large patient size, very limited assessment of the spinal canal. IMPRESSION: CERVICAL SPINE: 1. MILD SPONDYLOTIC CHANGE MID TO LOWER CERVICAL SPINE. SUSPECTED OLD FRACTURE OF THE T1 SPINOUS PROC ESS. 2. DEGENERATIVE CHANGE AT THE C1 DENS ARTICULATION. 3. ASSESSMENT OF THE SPINAL CANAL FROM C5-C6 AND BELOW IS LIMITED DUE TO ARTIFACT FROM THE PATIENT'S SHOULDERS. THORACIC SPINE: 4. Mild degenerative disc disease and mild facet arthropathy. This results in mild narrowing of the b ilateral neuroforamen at T9-T10 and on the left at T8-T9. 5. Very limited assessment of the spinal canal from T9 through T12 levels due to patient size. No obv ious abnormality of the spinal canal at the other levels allowing for the limitations of CT. 6. No vertebral compression collapse or malalignment. Lumbar spine: 7. Very limited assessment of the spinal canal due to the patient's size. If indicated, MRI can provi de more sensitive evaluation. 8. Suspect a posterior disc bulge at L3-L4 which may mildly narrow the spinal canal. 9. No vertebral compression collapse or malalignment.
[2022-11-09] MEDS ORDERED: TOPIRAMATE 100 MG TAB PO SCH (21:00)
--- NOTE | 2022-11-10 18:13 | P.DS ---
Providers Date of admission: 11/07/22 22:25 Expected date of discharge: 11/09/22 Attending physician: Jaciel Nuno Consults: 11/07/22 22:35 Consult Physician Urgent Consulting Provider: Armando Gold Consult Reason/Comments: Intractable headache, abnormal CT Do you want consulting provider notified?: Yes Primary care physician: Vinicio Fried Hospital Course: Final diagnosis Intractable Headache with history of migraines Gastroesophageal reflux disease THC use Hypertension Elevated random glucose with no history of diabetes hemoglobin a1c of 7.0, likely diabetes, new onset Anxiety Obesity with a BMI of 33 GI prophylaxis DVT prophylaxis Full code Discharge disposition Patient is being discharged in a stable condition with guarded prognosis to home. Patient will follow-up with Dr. Fried in the outpatient setting upon discharge. Patient is to continue follow-up with neurology outpatient as scheduled. Patient started on Topamax and will continue other medications. Total time taken is greater than 35 minutes. Hospital course This is a 37-year-old male who was recently admitted with headache and history of migraines that have been progressively getting worse over the last few months. Patient was at [facility] and did not like the care he was receiving and came to [facility] for further treatment underwent imaging which was negative for any acute process although noted to have dilation of the ventricular system. Patient does follow with neurology outpatient and recommended follow-up with a headache specialist in the [place] or [place] area and resources were provided. Patient had random elevated blood sugars as well with strong familial history of diabetes and hemoglobin A1c was shown to be 7 likely new onset diabetes. Patient instructed to follow-up with primary care provider and start with diet and discuss possible diabetic agents and if requiring insulin. Patient has been cleared by neurology and will follow-up outpatient. Currently no reports of chest pain, shortness of breath, or palpitations. Patient is afebrile. No reports of nausea or vomiting and patient is tolerating diet. Patient will be discharged home today. These refer to neurology consultation notes and imaging for further HPI. Physical exam: Gen: This is a 37-year-old male who is awake, alert and oriented 3, well- developed, well-nourished, obese. HEENT: Head is atraumatic, normocephalic. Pupils equal, round. Sclerae is anicteric. NECK: Supple. No JVD. No lymphadenopathy. No thyromegaly. LUNGS: Clear to auscultation. No wheezes or rhonchi. No intercostal retractions. HEART: Regular rate and rhythm. No murmur. ABDOMEN: Soft. Bowel sounds are present. No masses. No tenderness. EXTREMITIES: No pedal edema. No calf tenderness. NEUROLOGICAL: Patient is awake, alert and oriented x3. Cranial nerves 2 through 12 are grossly intact. Please refer to medication reconciliation sheet for a list of medications. The impression and plan of care has been dictated by Shanon Severino, Nurse Practitioner as directed. MD Andrew I have performed a history and examination and MDM of this patient, discussed the same with the dictator, and agree with the dictator's assessment and plan as written ,documented as a scribe. Based on total visit time, I have performed more than 50% of the visit. Patient Condition at Discharge: Fair Plan - Discharge Summary Discharge Rx Participant: No New Discharge Prescriptions: New Topiramate [Topamax] 100 mg PO BID 30 Days #60 tab Famotidine [Pepcid] 20 mg PO BID 15 Days #30 tablet traMADol HCl [Ultram] 50 mg PO Q6HR PRN 3 Days #12 tab PRN Reason: Pain Sennosides [Senokot] 8.6 mg PO BID #10 tablet SUMAtriptan succinate [Imitrex] 50 mg PO DAILY PRN #9 tablet PRN Reason: Migraine Headache Continue Propranolol LA [Inderal LA] 60 mg PO DAILY Magnesium Chloride [Slow-Mag] 64 mg PO DAILY Cholecalciferol [Vitamin D3 (25 Mcg = 1000 Iu)] 50 mcg PO DAILY ALPRAZolam [Xanax] 0.5 mg PO TID PRN PRN Reason: Anxiety Pregabalin [Lyrica] 50 mg PO BID hydrOXYzine HCL [Atarax] 10 mg PO HS PRN PRN Reason: Itching Pimecrolimus [Elidel] 1 applic TOPICAL BID PRN PRN Reason: DERMATITIS Omeprazole 40 mg PO AC-BRKFST Clobetasol Propionate [Temovate 0.05% Cream] 1 applic TOPICAL BID PRN PRN Reason: athlete's foot Ciclopirox Olamine [Loprox 0.77% cream] 1 applic TOPICAL BID PRN PRN Reason: athlete's foot Ammonium Lactate Lotion [Lac-Hydrin 12% Lotion] 1 applic TOPICAL BID PRN PRN Reason: athlete's foot Gentamicin Sulfate [Gentamicin Sulfate 0.1%] 1 applic TOPICAL BID PRN PRN Reason: athlete's foot Discharge Medication List ALPRAZolam [Xanax] 0.5 mg PO TID PRN 11/08/22 [History] Ammonium Lactate Lotion [Lac-Hydrin 12% Lotion] 1 applic TOPICAL BID PRN 0 11/08/22 [History] Cholecalciferol [Vitamin D3 (25 Mcg = 1000 Iu)] 50 mcg PO DAILY 11/08/22 [History] Ciclopirox Olamine [Loprox 0.77% cream] 1 applic TOPICAL BID PRN 11/08/22 [History] Clobetasol Propionate [Temovate 0.05% Cream] 1 applic TOPICAL BID PRN 11/08/22 [History] Gentamicin Sulfate [Gentamicin Sulfate 0.1%] 1 applic TOPICAL BID PRN 11/08/22 [History] Magnesium Chloride [Slow-Mag] 64 mg PO DAILY 11/08/22 [History] Omeprazole 40 mg PO AC-BRKFST 11/08/22 [History] Pimecrolimus [Elidel] 1 applic TOPICAL BID PRN 11/08/22 [History] Pregabalin [Lyrica] 50 mg PO BID 11/08/22 [History] Propranolol LA [Inderal LA] 60 mg PO DAILY 11/08/22 [History] hydrOXYzine HCL [Atarax] 10 mg PO HS PRN 11/08/22 [History] Famotidine [Pepcid] 20 mg PO BID 15 Days #30 tablet 11/09/22 [Rx] SUMAtriptan succinate [Imitrex] 50 mg PO DAILY PRN #9 tablet 11/09/22 [Rx] Sennosides [Senokot] 8.6 mg PO BID #10 tablet 11/09/22 [Rx] Topiramate [Topamax] 100 mg PO BID 30 Days #60 tab 11/09/22 [Rx] traMADol HCl [Ultram] 50 mg PO Q6HR PRN 3 Days #12 tab 11/09/22 [Rx] Follow up Appointment(s)/Referral(s): Catrachita Harvey MD [REFERRING] - 1 Week Vinicio Fried MD [Primary Care Provider] - 1-2 days Tom Chaudhary DO [Doctor of Osteopathic Medicine] - As Needed Patient Instructions/Handouts: Acute Headache (DC) Activity/Diet/Wound Care/Special Instructions: Activity Limited until follow-up Follow-up primary care provider on discharge Follow-up with headache specialist in [facility] Dr. Lazaro Gutierrez call [phone] Continue taking medications as prescribed Continue stool softener while taking narcotic medications Continue consistent carb diabetic diet and discuss with her primary care provider about her hemoglobin A1c being 7.0 Avoid all alcohol and smoking Take Imitrex 50 mg as needed for intense migraine headache and only to use up to 9 times in a month. Strongly encouraged follow-up with neurologist sooner rather than later May follow-up with orthopedics outpatient as needed if having any back pain or increased symptoms Discharge Disposition: HOME SELF-CARE
== END 2022-11-09 16:58 | disposition home or self-care (01) ==
LOC: EC 20:05 → 6NMEDSUR 22:25
PROVIDERS: ADMIT Internal Medicine; ATTEND Internal Medicine
DX: G43.801 Other migraine, not intractable, with status migrainosus (principal); K21.9 Gastro-esophageal reflux disease without esophagitis; H16.139 Photokeratitis, unspecified eye; Z82.0 Family history of epilepsy and other diseases of the nervous system; R73.9 Hyperglycemia, unspecified; E66.9 Obesity, unspecified; Z68.33 Body mass index [BMI] 33.0-33.9, adult; F41.9 Anxiety disorder, unspecified; M79.7 Fibromyalgia; I10 Essential (primary) hypertension; M50.30 Other cervical disc degeneration, unspecified cervical region; M47.814 Spondylosis without myelopathy or radiculopathy, thoracic region; M48.04 Spinal stenosis, thoracic region; Z79.899 Other long term (current) drug therapy; Z91.09 Other allergy status, other than to drugs and biological substances; J30.2 Other seasonal allergic rhinitis
CPT/HCPCS: 96376 ×2; 96361 ×3; 96375 ×3; 96374; 99285; 36415; 80053; 85652; 85025; 86140; 83036; 72130; 72127; 72133; 70496; 70498; 70553; G0378 ×3; J2060; J1200; J0780; J2360; J2765; J2405; J2930; J1170 ×3; J1885 ×2; Q9967 ×2; A9585

== ENCOUNTER 2023-11-17 22:16 | Emergency (ER) | payer OTHER ==
[2023-11-17] MEDS ORDERED: SODIUM CHLORIDE 0.9% 1,000 ML IV STA (22:22)
[2023-11-17] MEDS ORDERED: KETOROLAC 15 MG/ML 1 ML VIAL IVP STA (22:22)
[2023-11-17] MEDS ORDERED: ONDANSETRON ODT 8 MG TAB.RAPDIS PO STA (22:22)
--- NOTE | 2023-11-17 22:23 | ED ---
General Adult HPI <Sacha Martinez - Last Filed: 11/18/23 19:27> <Shanon Kendrick - Last Filed: 11/18/23 22:09> - General Stated complaint: Stomach flu, diarrhea, blood in vomit Time Seen by Provider: 11/17/23 22:22 - History of Present Illness Initial comments: 38-year-old male presenting to the ED with a chief complaint of nausea and vom iting. Patient states for the past 3 days has had diffuse abdominal pain, nausea, vomiting, headache. States he has been unable to keep anything down today prompting presentation to the ED for further evaluation. Also does note some associated chills. (Sacha Martinez) - Related Data Home Medications Medication Instructions Recorded Confirmed ALPRAZolam [Xanax] 0.5 mg PO TID PRN 11/08/22 12/19/22 Ammonium Lactate Lotion 1 applic TOPICAL BID PRN 11/08/22 12/19/22 [Lac-Hydrin 12% Lotion] Cholecalciferol [Vitamin D3 (25 50 mcg PO DAILY 11/08/22 12/19/22 Mcg = 1000 Iu)] Ciclopirox Olamine [Loprox 0.77% 1 applic TOPICAL BID PRN 11/08/22 12/19/22 cream] Clobetasol Propionate [Temovate 1 applic TOPICAL BID PRN 11/08/22 12/19/22 0.05% Cream] Gentamicin Sulfate [Gentamicin 1 applic TOPICAL BID PRN 11/08/22 12/19/22 Sulfate 0.1%] Magnesium Chloride [Slow-Mag] 64 mg PO DAILY 11/08/22 12/19/22 Omeprazole 40 mg PO AC-BRKFST 11/08/22 12/19/22 Pimecrolimus [Elidel] 1 applic TOPICAL BID PRN 11/08/22 12/19/22 Pregabalin [Lyrica] 50 mg PO BID 11/08/22 12/19/22 hydrOXYzine HCL [Atarax] 10 mg PO HS PRN 11/08/22 12/19/22 Propranolol LA [Inderal LA] 80 mg PO DAILY 12/19/22 12/19/22 Previous Rx's Medication Instructions Recorded Topiramate [Topamax] 100 mg PO BID 30 Days #60 tab 11/09/22 traMADol HCl [Ultram] 50 mg PO Q6HR PRN 3 Days #12 tab 11/09/22 HYDROcodone/APAP 5-325MG [[place] 1 tab PO Q6HR PRN 3 Days #12 tab 12/19/22 5-325] Meloxicam [Mobic] 15 mg PO DAILY PRN #15 tablet 12/19/22 Allergies Allergy/AdvReac Type Severity Reaction Status Date / Time No Known Allergies Allergy Verified 11/17/23 22:22 Review of Systems ROS Other: All systems not noted in ROS Statement are negative. <Sacha Martinez - Last Filed: 11/18/23 19:27> ROS Other: All systems not noted in ROS Statement are negative. <Shanon Kendrick - Last Filed: 11/18/23 22:09> ROS Statement: Those systems with pertinent positive or pertinent negative responses have been documented in the HPI. Past Medical History Past Medical History: GERD/Reflux Additional Past Medical History / Comment(s): migraine, History of Any Multi-Drug Resistant Organisms: None Reported Past Surgical History: No Surgical Hx Reported Additional Past Surgical History / Comment(s): foot rash Additional Past Anesthesia/Blood Transfusion Reaction / Comment(s): pt has never recieved Past Psychological History: No Psychological Hx Reported Smoking Status: Never smoker Past Alcohol Use History: Daily Past Drug Use History: Marijuana <Sacha Martinez - Last Filed: 11/18/23 19:27> General Exam General appearance: alert, in no apparent distress Eye exam: Present: normal appearance ENT exam: Present: mucous membranes moist Neck exam: Present: normal inspection Respiratory exam: Present: normal lung sounds bilaterally Cardiovascular Exam: Present: regular rate, normal rhythm GI/Abdominal exam: Present: soft (Diffuse abdominal tenderness to palpation. No rebound guarding or rigidity.) Neurological exam: Present: alert, oriented X3 Skin exam: Present: warm, dry <Sacha Martinez - Last Filed: 11/18/23 19:27> Course Vital Signs 11/17/23 11/18/23 11/18/23 22:21 04:18 06:25 Temperature 98.3 F 97.5 F L 97.7 F Pulse Rate 88 84 78 Respiratory 18 18 18 Rate Blood Pressure 135/84 108/64 110/71 O2 Sat by Pulse 100 98 99 Oximetry 01/29/24 07:42 Temperature Pulse Rate 67 Respiratory 18 Rate Blood Pressure 109/74 O2 Sat by Pulse 99 Oximetry Medical Decision Making - Lab Data Result diagrams: 11/17/23 23:31 11/17/23 23:31 <Sacha Martinez - Last Filed: 11/18/23 19:27> - Lab Data Result diagrams: 11/17/23 23:31 11/17/23 23:31 <Shanon Kendrick - Last Filed: 11/18/23 22:09> - Medical Decision Making Was pt. sent in by a medical professional or institution (, PA, MANAGEMENT TECH, urgent care, hospital, or prison...) When possible be specific @ -No Did you speak to anyone other than the patient for history (EMS, parent, family, police, friend...)? What history was obtained from this source @ -No Did you review nursing and triage notes (agree or disagree)? Why? @ -I reviewed and agree with nursing and triage notes Were old charts reviewed (outside hosp., previous admission, EMS record, old EKG, old radiological studies, urgent care reports/EKG's, prison records)? Report findings @ -No old charts were reviewed Differential Diagnosis (chest pain, altered mental status, abdominal pain women, abdominal pain men, vaginal bleeding, weakness, fever, dyspnea, syncope, headache, dizziness, GI bleed, back pain, seizure, CVA, palpatations, mental health, musculoskeletal)? @ -Differential Abdominal Pain Men: Appendicitis, cholecystitis, diverticulosis, ischemic bowel, pancreatitis, hepatitis, UTI, gastroenteritis, AAA, incarcerated hernia, bowel obstruction, constipation, inflammatory bowel, hepatitis, peptic ulcer disease, splenic infarction, perforated viscus, testicular torsion, this is not meant to be an all-inclusive list EKG interpreted by me (3pts min.). @ -None X-rays interpreted by me (1pt min.). @ -None done CT interpreted by me (1pt min.). @ -CT abdomen pelvis at this time is pending U/S interpreted by me (1pt. min.). @ -None done What testing was considered but not performed or refused? (CT, X-rays, U/S, labs)? Why? @ -None What meds were considered but not given or refused? Why? @ -None Did you discuss the management of the patient with other professionals (professionals i.e. Dr., PA, MANAGEMENT TECH, lab, RT, psych nurse, high school social studies teacher, stock preparation operator, teacher, plain clothes police officer, window caser)? Give summary @ -No Was smoking cessation discussed for >3mins.? @ -No Was critical care preformed (if so, how long)? @ -No Were there social determinants of health that impacted care today? How? (Homelessness, low income, unemployed, alcoholism, drug addiction, transportation, low edu. Level, literacy, decrease access to med. care, nursing home, rehab)? @ -No Was there de-escalation of care discussed even if they declined (Discuss DNR or withdrawal of care, Hospice)? DNR status @ -No What co-morbidities impacted this encounter? (DM, HTN, Smoking, COPD, CAD, Cancer, CVA, ARF, Chemo, Hep., AIDS, mental health diagnosis, sleep apnea, morbid obesity)? @ -None Was patient admitted / discharged? Hospital course, mention meds given and route, prescriptions, significant lab abnormalities, going to OR and other pertinent info. @ -Pending 38-year-old male presenting to the ED with complaints of nausea, vomiting, diarrhea for the past 2 to 3 days. Laboratory studies at this time including CBC, CMP, UA, serology panel unremarkable. CT abdomen pelvis at this time is pending. Case signed out to my attending Dr. Kendrick for further disposition. Was patient admitted / discharged? Hospital course, mention meds given and route, prescriptions, significant lab abnormalities, going to OR and other pertinent info. @ -Discharge Case signed out to my attending Dr. Kendrick for further disposition pending CT results. CT results shows evidence of enterocolitis. At this time laboratory studies unremarkable and patient was discharged home in stable condition. Undiagnosed new problem with uncertain prognosis? @ -No Drug Therapy requiring intensive monitoring for toxicity (Heparin, Nitro, Insulin, Cardizem)? @ -No Were any procedures done? @ -No Diagnosis/symptom? @ -Enterocolitis Acute, or Chronic, or Acute on Chronic? @ -Acute Uncomplicated (without systemic symptoms) or Complicated (systemic symptoms)? @ -Uncomplicated Side effects of treatment? @ -No Exacerbation, Progression, or Severe Exacerbation? @ -No Poses a threat to life or bodily function? How? (Chest pain, [place], [place], pneumonia, PE, COPD, DKA, ARF, appy, cholecystitis, CVA, Diverticulitis, Homicidal, Suicidal, threat to staff... and all critical care pts) @ -No (Sacha Martinez) I personally saw and evaluated the patient, I discussed the patient's lab and CT imaging with him. He was feeling much better comfortable plan for discharge home with Zofran as needed for nausea. Close return parameters were discussed patient is discharged home stable condition. (Shanon Kendrick) - Lab Data Lab Results 11/17/23 11/17/23 11/17/23 Range/Units 22:26 23:31 23:31 WBC 6.5 (3.8-10.6) k/uL RBC 5.77 (4.30-5.90) m/uL Hgb 16.2 (13.0-17.5) gm/dL Hct 46.4 (39.0-53.0) % MCV 80.3 (80.0-100.0) fL MCH 28.0 (25.0-35.0) pg MCHC 34.9 (31.0-37.0) g/dL RDW 13.1 (11.5-15.5) % Plt Count 282 (150-450) k/uL MPV 7.7 Neutrophils % 74 % Lymphocytes % 16 % Monocytes % 5 % Eosinophils % 1 % Basophils % 1 % Neutrophils # 4.8 (1.3-7.7) k/uL Lymphocytes # 1.1 (1.0-4.8) k/uL Monocytes # 0.3 (0-1.0) k/uL Eosinophils # 0.0 (0-0.7) k/uL Basophils # 0.0 (0-0.2) k/uL Sodium (137-145) mmol/L Potassium (3.5-5.1) mmol/L Chloride (98-107) mmol/L Carbon Dioxide (22-30) mmol/L Anion Gap mmol/L BUN (9-20) mg/dL Creatinine (0.66-1.25) mg/dL Est GFR (CKD-EPI)AfAm (>60 ml/min/1.73 sqM) Est GFR (CKD-EPI)NonAf (>60 ml/min/1.73 sqM) Glucose (74-99) mg/dL Calcium (8.4-10.2) mg/dL Total Bilirubin (0.2-1.3) mg/dL AST (17-59) U/L ALT (4-49) U/L Alkaline Phosphatase (38-126) U/L Total Protein (6.3-8.2) g/dL Albumin (3.5-5.0) g/dL Amylase (30-110) U/L Lipase (23-300) U/L Urine Color Dark Yellow Urine Appearance Clear (Clear) Urine pH 6.0 (5.0-8.0) Ur Specific [place] 1.038 H (1.001-1.035) Urine Protein 1+ H (Negative) Urine Glucose (UA) Negative (Negative) Urine Ketones Negative (Negative) Urine Blood Negative (Negative) Urine Nitrite Negative (Negative) Urine Bilirubin Negative (Negative) Urine Urobilinogen <2.0 (<2.0) mg/dL Ur Leukocyte Esterase Negative (Negative) Urine RBC 2 (0-5) /hpf Urine WBC 1 (0-5) /hpf Ur Squamous Epith Cells <1 (0-4) /hpf Urine Mucus Many H (None) /hpf Influenza Type A (PCR) Not Detected (Not Detectd) Influenza Type B (PCR) Not Detected (Not Detectd) RSV (PCR) Not Detected (Not Detectd) SARS-CoV-2 (PCR) Not Detected (Not Detectd) 11/17/23 Range/Units 23:31 WBC (3.8-10.6) k/uL RBC (4.30-5.90) m/uL Hgb (13.0-17.5) gm/dL Hct (39.0-53.0) % MCV (80.0-100.0) fL MCH (25.0-35.0) pg MCHC (31.0-37.0) g/dL RDW (11.5-15.5) % Plt Count (150-450) k/uL MPV Neutrophils % % Lymphocytes % % Monocytes % % Eosinophils % % Basophils % % Neutrophils # (1.3-7.7) k/uL Lymphocytes # (1.0-4.8) k/uL Monocytes # (0-1.0) k/uL Eosinophils # (0-0.7) k/uL Basophils # (0-0.2) k/uL Sodium 138 (137-145) mmol/L Potassium 3.8 (3.5-5.1) mmol/L Chloride 98 (98-107) mmol/L Carbon Dioxide 27 (22-30) mmol/L Anion Gap 13 mmol/L BUN 20 (9-20) mg/dL Creatinine 0.91 (0.66-1.25) mg/dL Est GFR (CKD-EPI)AfAm >90 (>60 ml/min/1.73 sqM) Est GFR (CKD-EPI)NonAf >90 (>60 ml/min/1.73 sqM) Glucose 140 H (74-99) mg/dL Calcium 9.8 (8.4-10.2) mg/dL Total Bilirubin 1.1 (0.2-1.3) mg/dL AST 37 (17-59) U/L ALT 65 H (4-49) U/L Alkaline Phosphatase 83 (38-126) U/L Total Protein 9.0 H (6.3-8.2) g/dL Albumin 5.0 (3.5-5.0) g/dL Amylase 59 (30-110) U/L Lipase 83 (23-300) U/L Urine Color Urine Appearance (Clear) Urine pH (5.0-8.0) Ur Specific [place] (1.001-1.035) Urine Protein (Negative) Urine Glucose (UA) (Negative) Urine Ketones (Negative) Urine Blood (Negative) Urine Nitrite (Negative) Urine Bilirubin (Negative) Urine Urobilinogen (<2.0) mg/dL Ur Leukocyte Esterase (Negative) Urine RBC (0-5) /hpf Urine WBC (0-5) /hpf Ur Squamous Epith Cells (0-4) /hpf Urine Mucus (None) /hpf Influenza Type A (PCR) (Not Detectd) Influenza Type B (PCR) (Not Detectd) RSV (PCR) (Not Detectd) SARS-CoV-2 (PCR) (Not Detectd) Disposition <Sacha Martinez - Last Filed: 11/18/23 19:27> Is patient prescribed a controlled substance at d/c from ED?: No <Shanon Kendrick - Last Filed: 11/18/23 22:09> Clinical Impression: Nausea vomiting and diarrhea, Enterocolitis Disposition: HOME SELF-CARE Condition: Stable Instructions (If sedation given, give patient instructions): Acute Nausea and Vomiting (ED) Referrals: Vinicio Fried [Primary Care Provider] - 1-2 days
[2023-11-17 22:48] VITALS: RESP 18
[2023-11-17] MEDS ORDERED: ONDANSETRON 4 MG/2 ML VIAL IVP STA (23:38)
[2023-11-18 00:24] LABS: Basophils % (A) 1 %; Eosinophils % (A) 1 %; HCT 46.4 % (39.0-53.0); HGB 16.2 gm/dL (13.0-17.5); Lymphocytes # (A) 1.1 k/uL (1.0-4.8); Lymphocytes % (A) 16 %; MCHC 34.9 g/dL (31.0-37.0); MCV 80.3 fL (80.0-100.0); Mean Platelet Volume 7.7; Monocytes # (A) 0.3 k/uL (0-1.0); Monocytes % (A) 5 %; Neutrophils # (A) 4.8 k/uL (1.3-7.7); Neutrophils % (A) 74 %; Platelet Count 282 k/uL (150-450); RBC 5.77 m/uL (4.30-5.90); RDW 13.1 % (11.5-15.5); WBC 6.5 k/uL (3.8-10.6)
[2023-11-18 00:33] LABS: Appearance,Urine Clear (Clear); Bilirubin,Urine Negative (Negative); Blood,Urine Negative (Negative); Color,Urine Dark Yellow; Glucose,Urine (UA) Negative (Negative); Ketones,Urine Negative (Negative); Leukocyte Esterase,Urine Negative (Negative); Mucus,Urine Many /hpf; Nitrite,Urine Negative (Negative); Protein,Urine 1+ (Negative); RBC,Urine 2 /hpf (0-5); Specific Gravity,Urine 1.038 (1.001-1.035); Squamous Epithelial Cell,Urine <1 /hpf (0-4); Urobilinogen,Urine <2.0 mg/dL (<2.0); WBC,Urine 1 /hpf (0-5)
[2023-11-18 00:35] LABS: ALT 65 U/L (4-49); AST 37 U/L (17-59); African American GFR (CKD) >90 (>60 ml/min/1.73 sqM); Alkaline Phosphatase 83 U/L (38-126); Amylase 59 U/L (30-110); Anion Gap 13 mmol/L; Blood Urea Nitrogen 20 mg/dL (9-20); Calcium 9.8 mg/dL (8.4-10.2); Carbon Dioxide 27 mmol/L (22-30); Chloride 98 mmol/L (98-107); Glucose 140 mg/dL (74-99); Lipase 83 U/L (23-300); Non-African American GFR(CKD) >90 (>60 ml/min/1.73 sqM); Sodium 138 mmol/L (137-145); Total Bilirubin 1.1 mg/dL (0.2-1.3)
[2023-11-18 00:49] LABS: Potassium 3.8 mmol/L (3.5-5.1)
[2023-11-18] MEDS ORDERED: PROCHLORPERAZINE INJ 10 MG/2 ML VIAL IVP STA (02:48)
[2023-11-18] MEDS ORDERED: ACETAMINOPHEN TAB 500 MG TAB PO STA (04:20)
[2023-11-18 06:50] VITALS: TEMP 97.7
--- NOTE | 2023-11-18 07:25 | CT ---
EXAMINATION TYPE: CT abdomen pelvis w con DATE OF EXAM: 11/18/2023 COMPARISON: None HISTORY: diffuse abd pain n/v/d. no prior iso [address]ml[address] no chronic hx[address] CT DLP: 1597 mGycm CONTRAST: CT scan of the abdomen and pelvis is performed without Oral Contrast and with IV Contrast, patient in jected with 100 mL of Isovue 300. FINDINGS: LUNG BASES-: No visible nodule. No infiltrate. LIVER/GB: No calcified gallstones. No space occupying hepatic lesion. Biliary tree is of normal ca liber. Mild hepatic steatosis noted. PANCREAS: No inflammation. No distinct mass. SPLEEN: No splenic enlargement. No lesion seen. ADRENALS: No nodule. No thickening. KIDNEYS/BLADDER: No hydronephrosis. No nephrolithiasis. No distinct renal mass. Urinary bladder g rossly unremarkable. BOWEL: Normal appendix. Mild fluid distention small and large bowel which may reflect enterocolitis. GENITAL ORGANS: No gross abnormality. LYMPH NODES: No greater than 1cm abdominal or pelvic lymph nodes are appreciated. AORTA: No significant abnormality. OSSEOUS STRUCTURES: No significant abnormality is seen. OTHER: No significant additional abnormality is seen. IMPRESSION: 1. Correlate for enterocolitis.
[2023-11-18] MEDS ORDERED: ONDANSETRON 4 MG ODT STARTER PACK 2 TAB BTL PO STA (07:32)
[2023-11-18 07:45] VITALS: BP 109/74; PULSE 67
== END 2023-11-18 07:42 | disposition home or self-care (01) ==
LOC: EC 22:16
DX: K52.9 Noninfective gastroenteritis and colitis, unspecified (principal); K21.9 Gastro-esophageal reflux disease without esophagitis; F12.90 Cannabis use, unspecified, uncomplicated; Z20.822 Contact with and (suspected) exposure to COVID-19; Z79.899 Other long term (current) drug therapy
CPT/HCPCS: 36415; 80053; 82150; 83690; 85025; 81001; 87636; 74177; 99284; 96374; 96375 ×2; 96361; J0780; J2405; J1885; S0119; Q9967

== ENCOUNTER 2025-05-19 15:36 | Emergency (ER) | payer OTHER ==
--- NOTE | 2025-05-19 15:51 | ED ---
Chest Pain HPI - General Chief Complaint: Chest Pain Stated Complaint: abdominal pain, difficulty breathing Time Seen by Provider: 05/19/25 15:46 Source: patient, RN notes reviewed, old records reviewed Mode of arrival: ambulatory Limitations: no limitations - History of Present Illness Initial Comments: This is a 39-year-old male to ER for evaluation of multiple complaints sore throat chest pain back pain left-sided abdominal pain feeling weak. Patient states he feels significantly ill, persistent nausea vomiting. Patient has chest pain chest tightness left-sided arm pain left-sided arm tightness shortness of breath and left-sided abdominal pain. No fevers travel history or sick contacts known. No recent surgeries history of alcohol disease history of hypertension MD Complaint: chest pain, other (Abdominal pain chest pain back pain and shortness of breath) -: days(s) Onset: during rest, during exertion Pain Location: substernal, left chest Pain Radiation: LUE Severity: moderate Severity scale (1-10): 6 Quality: aching, sharp Consistency: constant Improves With: nothing Worsens With: nothing Anginal Symptoms: dyspnea, sense of impending doom Other Symptoms: palpitations Treatments Prior to Arrival: none - Related Data Home Medications Medication Instructions Recorded Confirmed ALPRAZolam [Xanax] 0.5 mg PO TID PRN 11/08/22 05/19/25 Omeprazole 40 mg PO DAILY 11/08/22 05/19/25 Propranolol LA [Inderal LA] 80 mg PO DAILY 12/19/22 05/19/25 Atogepant [Qulipta] 60 mg PO DAILY 05/19/25 05/19/25 Butalb/APAP/Caff 50-325-40Mg 1 tab PO DAILY PRN 05/19/25 05/19/25 [Fioricet 50-325-40] Cetirizine HCl [Zyrtec] 10 mg PO DAILY 05/19/25 05/19/25 Ergocalciferol [Vitamin D2 (1250 1,250 mcg PO Q7D 05/19/25 05/19/25 Mcg = 96964 Iu)] Gabapentin 300 mg PO HS 05/19/25 05/19/25 Gabapentin [Neurontin] 100 mg PO BID@0800,1500 05/19/25 05/19/25 HYDROcodone/APAP 7.5-325MG [[place] 1 tab PO TID PRN 05/19/25 05/19/25 7.5-325] methocarbamoL [Robaxin] 500 mg PO BID PRN 05/19/25 05/19/25 Previous Rx's Medication Instructions Recorded Amoxic-Pot Clav 875-125Mg 1 tab PO Q12HR #20 tablet 05/19/25 [Augmentin 875-125] Allergies Allergy/AdvReac Type Severity Reaction Status Date / Time No Known Allergies Allergy Verified 05/19/25 18:24 Review of Systems ROS Statement: Those systems with pertinent positive or pertinent negative responses have been documented in the HPI. ROS Other: All systems not noted in ROS Statement are negative. EKG Findings - EKG Comments: EKG Findings:: EKG is sinus 67 MS 154 QRS 100 QTc 402 - EKG Results: EKG: interpreted by PRITESH Past Medical History Past Medical History: GERD/Reflux Additional Past Medical History / Comment(s): migraine, History of Any Multi-Drug Resistant Organisms: None Reported Past Surgical History: No Surgical Hx Reported Additional Past Surgical History / Comment(s): foot rash Additional Past Anesthesia/Blood Transfusion Reaction / Comment(s): pt has never recieved Past Psychological History: No Psychological Hx Reported Smoking Status: Current some day smoker Past Alcohol Use History: Daily Past Drug Use History: Marijuana General Exam Limitations: no limitations General appearance: alert, in no apparent distress Head exam: Present: atraumatic, normocephalic, normal inspection Eye exam: Present: normal appearance, PERRL, EOMI. Absent: scleral icterus, conjunctival injection, periorbital swelling ENT exam: Present: normal exam, mucous membranes moist Neck exam: Present: normal inspection. Absent: tenderness, meningismus, lymphadenopathy Respiratory exam: Present: normal lung sounds bilaterally. Absent: respiratory distress, wheezes, rales, rhonchi, stridor Cardiovascular Exam: Present: regular rate, normal rhythm, normal heart sounds. Absent: systolic murmur, diastolic murmur, rubs, gallop, clicks GI/Abdominal exam: Present: soft, normal bowel sounds. Absent: distended, tenderness, guarding, rebound, rigid Extremities exam: Present: normal inspection, full ROM, normal capillary refill. Absent: tenderness, pedal edema, joint swelling, calf tenderness Back exam: Present: normal inspection Neurological exam: Present: alert, oriented X3, CN II-XII intact Psychiatric exam: Present: normal affect, normal mood Skin exam: Present: warm, dry, intact, normal color. Absent: rash Course Vital Signs 05/19/25 05/19/25 05/19/25 15:39 16:22 16:32 Temperature 97.9 F Pulse Rate 71 76 Pulse Rate [ [facility] ] Respiratory 18 Rate Blood Pressure 119/82 112/81 O2 Sat by Pulse 97 93 L Oximetry 05/19/25 05/19/25 05/19/25 17:45 19:21 20:19 Temperature 97.9 F 97.7 F Pulse Rate 70 70 67 Pulse Rate [ [facility] ] Respiratory 19 16 Rate Blood Pressure 111/73 127/89 117/85 O2 Sat by Pulse 99 97 98 Oximetry - Reevaluation(s) Reevaluation #1: 05/19/25 18:54 Medical records reviewed Reevaluation #2: 05/19/25 18:54 Patient symptoms unchanged Reevaluation #3: 05/19/25 18:54 Patient informed of results and questions answered Reevaluation #4: Was pt. sent in by a medical professional or institution (, PA, CODE ENFORCEMENT OFFICER, urgent care, hospital, or custodial...) When possible be specific @ -no Did you speak to anyone other than the patient for history (EMS, parent, family, police, friend...)? What history was obtained from this source @ -no Did you review nursing and triage notes (agree or disagree)? Why? @ -agree Are old charts reviewed (outside hosp., previous admission, EMS record, old EKG, old radiological studies, urgent care reports/EKG's, custodial records)? Report findings @ -yes Differential Diagnosis (chest pain, altered mental status, abdominal pain women, abdominal pain men, vaginal bleeding, weakness, fever, dyspnea, syncope, headache, dizziness, GI bleed, back pain, seizure, CVA, palpatations, mental health, musculoskeletal)? @ -prior EKG interpreted by me (3pts min.). @ -yes X-rays interpreted by me (1pt min.). @ -yes negative for acute disease CT interpreted by me (1pt min.). @ -no U/S interpreted by me (1pt. min.). @ -no What testing was considered but not performed or refused? (CT, X-rays, U/S, labs)? Why? @ -none What meds were considered but not given or refused? Why? @ -none Did you discuss the management of the patient with other professionals (professionals i.e. , PA, CODE ENFORCEMENT OFFICER, lab, RT, psych nurse, aids social worker, photographic colorist, teacher, patrol community service officer, case investigator)? Give summary @ -no Was smoking cessation discussed for >3mins.? @ -no Was critical care preformed (if so, how long)? @ -no Were there social determinants of health that impacted care today? How? (Homelessness, low income, unemployed, alcoholism, drug addiction, transportation, low edu. Level, literacy, decrease access to med. care, shelter, rehab)? @ -none Was there de-escalation of care discussed even if they declined (Discuss DNR or withdrawal of care, Hospice)? DNR status @ -no What co-morbidities impacted this encounter? (DM, HTN, Smoking, COPD, CAD, Cancer, CVA, ARF, Chemo, Hep., AIDS, mental health diagnosis, sleep apnea, morbid obesity)? @ -none Was patient admitted / discharged? Hospital course, mention meds given and route, prescriptions, significant lab abnormalities, going to OR and other pertinent info. @ - Undiagnosed new problem with uncertain prognosis? @ -no Drug Therapy requiring intensive monitoring for toxicity (Heparin, Nitro, Insulin, Cardizem)? @ -no Were any procedures done? @ -no Diagnosis/symptom? @ - Acute, or Chronic, or Acute on Chronic? @ -Acute Uncomplicated (without systemic symptoms) or Complicated (systemic symptoms)? @ -Complicated Side effects of treatment? @ -no Exacerbation, Progression, or Severe Exacerbation? @ -exacerbation Poses a threat to life or bodily function? How? (Chest pain, [place], [place], pneumonia, PE, COPD, DKA, ARF, appy, cholecystitis, CVA, Diverticulitis, Homicidal, Suicidal, threat to staff... and all critical care pts) @ -yes Reevaluation #5: Differential Chest Pain: Stable Angina, Unstable Angina, STEMI, NSTEMI Aortic Dissection, Pneumothorax, Musculoskeletal, Esophageal Spasm GERD, Cholecystitis, Pancreatitis, Zoster, this is not meant to be an all-inclusive list. Differential Abdominal Pain Men: Appendicitis, cholecystitis, diverticulosis, ischemic bowel, pancreatitis, hepatitis, UTI, gastroenteritis, AAA, incarcerated hernia, bowel obstruction, constipation, inflammatory bowel, hepatitis, peptic ulcer disease, splenic infarction, perforated viscus, testicular torsion, this is not meant to be an all-inclusive list Chest Pain MDM - MDM 39 male with nonspecific pain generalized body aches and pains chest back abdome n altered mental status sore throat. Patient has normal imaging and EKG and lab testing here in the ER patient can be discharged home Disposition Clinical Impression: Atypical chest pain, Chest pain, Abdominal pain, Pneumonia Disposition: HOME SELF-CARE Condition: Fair Instructions (If sedation given, give patient instructions): Chest Pain (ED), Costochondritis (ED), Community Acquired Pneumonia (ED) Prescriptions: Amoxic-Pot Clav 875-125Mg [Augmentin 875-125] 1 tab PO Q12HR #20 tablet Is patient prescribed a controlled substance at d/c from ED?: No Referrals: Vinicio Fried [Primary Care Provider] - 1-2 days Time of Disposition: 17:30
[2025-05-19 16:52] LABS: Basophils # (A) 0.04 10*3/uL (0.00-0.10); Basophils % (A) 0.6 %; Eosinophils # (A) 0.38 10*3/uL (0.04-0.35); Eosinophils % (A) 5.8 %; HCT 39.5 % (39.6-50.0); HGB 13.4 g/dL (13.0-17.0); Lymphocytes # (A) 2.58 10*3/uL (0.90-5.00); Lymphocytes % (A) 39.2 %; MCH 27.2 pg (27.0-32.0); MCHC 33.9 g/dL (32.0-37.0); MCV 80.3 fL (80.0-97.0); Monocytes # (A) 0.40 10*3/uL (0.20-1.00); Monocytes % (A) 6.1 %; Neutrophils # (A) 3.17 10*3/uL (1.80-7.70); Neutrophils % (A) 48.0 %; Platelet Count 263 10*3/uL (140-440); RBC 4.92 10*6/uL (4.40-5.60); RDW 12.7 % (11.5-14.5); WBC 6.59 10*3/uL (4.50-10.00)
[2025-05-19 17:06] LABS: INR 0.9 (<1.2); Partial Thromboplastin Time 24.0 sec (22.0-30.0); Prothrombin Time 10.4 sec (10.0-12.5)
[2025-05-19 17:12] LABS: ALT 38 U/L (4-49); AST 29 U/L (17-59); African American GFR (CKD) >90 (>60 ml/min/1.73 sqM); Albumin 4.3 g/dL (3.5-5.0); Alkaline Phosphatase 90 U/L (38-126); Anion Gap 9 mmol/L; Blood Urea Nitrogen 18 mg/dL (9-20); Calcium 9.4 mg/dL (8.4-10.2); Carbon Dioxide 25 mmol/L (22-30); Chloride 104 mmol/L (98-107); Glucose 98 mg/dL (74-99); Lipase 82 U/L (23-300); Magnesium 1.8 mg/dL (1.6-2.3); Non-African American GFR(CKD) >90 (>60 ml/min/1.73 sqM); Potassium 4.2 mmol/L (3.5-5.1); Sodium 138 mmol/L (137-145); Total Protein 7.5 g/dL (6.3-8.2)
[2025-05-19 17:21] LABS: NT-Pro-B-Type Natriuretic Pept <20 pg/mL
--- NOTE | 2025-05-19 17:45 | XR ---
EXAMINATION TYPE: XR chest 2V DATE OF EXAM: 05/19/2025 5:37 PM COMPARISON: None TECHNIQUE: XR chest 2V Frontal and lateral views of the chest. CLINICAL INDICATION:Male, 39 years old with history of Chest Pain; FINDINGS: Lungs/Pleura: No pleural effusion or pneumothorax. Right lower lobe patchy airspace opacities. Pulmonary vascularity: Unremarkable. Heart/mediastinum: Cardiomediastinal silhouette is prominent in size. Musculoskeletal: No acute osseous pathology. IMPRESSION: Right lower lobe patchy airspace opacities concerning for pneumonia. [facility], , 05/19/2025 5:43 PM
[2025-05-19] MEDS: SODIUM CHLORIDE 0.9% 1,000 ML IV SCH (19:23)
[2025-05-19] MEDS: KETOROLAC 15 MG/ML 1 ML VIAL IVP STA (19:26)
[2025-05-19] MEDS: LORazepam 1 MG/0.5 ML VIAL IV STA (19:28)
[2025-05-19] MEDS: ONDANSETRON 4 MG/2 ML VIAL IVP STA (19:29)
--- NOTE | 2025-05-19 19:33 | CT ---
EXAMINATION TYPE: CT brain wo con DATE OF EXAM: 05/19/2025 7:13 PM COMPARISON: CTA of the neck 11/07/2022. MRI brain 11/08/2022. CLINICAL INDICATION: Male, 39 years old with history of pain, chest tightness with numbness to left a rm, SOB, left sided abdominal pain. TECHNIQUE: Brain: Axial CT images of the brain were obtained with coronal and sagittal reformats created and rev iewed. Contrast used: None. Oral contrast used: None. CT DLP: 1129.4 mGycm, Automated exposure control for dose reduction was used. FINDINGS: Brain: Extra-axial spaces: No abnormal extra-axial fluid collections. Ventricular system: Diffusely prominent similar to prior exams in reference. No transependymal hypoat tenuation noted. Cerebral parenchyma: No acute intraparenchymal hemorrhage or mass effect. The faye-white junction is well differentiated. Cerebellum: Unremarkable. Mass effect: No evidence of midline shift. Intracranial vasculature: unremarkable Soft tissues: Normal. Calvarium/osseous structures: No depressed skull fracture. Paranasal sinuses and mastoid air cells: Mild scattered paranasal sinus disease. Visualized orbits: Orbital contents are intact. IMPRESSION: No acute intracranial process. Similar diffuse ventricular prominence advanced for patient's age similar to prior exams with no evid ence for transependymal edema to suggest an obstructive process. [facility], , 05/19/2025 7:31 PM
[2025-05-19 20:20] VITALS: BP 117/85; PULSE 67; RESP 16; TEMP 97.7
--- NOTE | 2025-05-19 20:25 | CT ---
EXAMINATION TYPE: CT angio chest DATE OF EXAM: 05/19/2025 7:14 PM COMPARISON: CT abdomen/pelvis from same day.. CLINICAL INDICATION: Male, 39 years old with history of pain; chest tightness with numbness to left a rm, SOB, left sided abdominal pain. TECHNIQUE/CONTRAST: CTA scan of the thorax is performed with IV Contrast, patient injected with 100 ml mL of Isovue 370, MIP images are created and reviewed these are created on a separate workstation.. CT DLP: COMBINED DLP 2100.7 mGycm, Automated exposure control for dose reduction was used. FINDINGS: Lungs/Pleura: Scattered patchy groundglass attenuations with some tree-in-bud nodularity noted in the left lower lobe. No pleural effusions or pneumothorax.. Airway: Large airways are patent. Heart: Size within normal limits. No significant coronary artery calcifications. Vasculature: There is no evidence for a filling defect within the pulmonary vasculature to suggest ac [place] pulmonary embolism. The pulmonary artery is of normal size. Mediastinum: No gross evidence of adenopathy. Musculoskeletal: No acute osseous abnormalities Soft Tissues/lymph nodes: Unremarkable. Lower neck: No significant findings. Upper Abdomen: Please see separate CT abdomen report from the same day for further details.. IMPRESSION: 1. No evidence of pulmonary embolism. 2. Scattered groundglass changes in tree-in-bud nodularity in left lower lobe is concerning for acute infectious/inflammatory process. Correlate with clinical evaluation. [facility], , 05/19/2025 8:23 PM
--- NOTE | 2025-05-19 20:27 | CT ---
EXAMINATION TYPE: CT abdomen pelvis w con DATE OF EXAM: 05/19/2025 7:13 PM COMPARISON: CTA chest from the same day. CLINICAL INDICATION: Male, 39 years old with history of pain; chest tightness with numbness to left a rm, SOB, left sided abdominal pain. TECHNIQUE: Axial CT abdomen pelvis w con;Sagittal and coronal reformats were created on a separate w orkstation. Contrast used:100 ml mL of Isovue 370 with IV Contrast, (none if empty) Oral contrast used: without Oral Contrast (none if empty) CT DLP: COMBINED DLP 2100.7 mGycm, Automated exposure control for dose reduction was used. FINDINGS: LOWER CHEST: Please see separate CTA chest from same day for further details. ABDOMEN LIVER: Unremarkable GALLBLADDER AND BILE DUCTS: Unremarkable. PANCREAS: Unremarkable. SPLEEN: Unremarkable. ADRENAL GLANDS: Unremarkable. KIDNEYS AND URETERS: No evidence of hydronephrosis or obstructing renal calculus. The ureters are unr emarkable. PELVIS BLADDER: No evidence for wall thickening or mass given limitations of exam. REPRODUCTIVE: Unremarkable. ABDOMEN & PELVIS STOMACH AND BOWEL: Small hiatal hernia. Small bowel is of normal caliber. No evidence of bowel obstru ction. PERITONEUM/RETROPERITONEUM: No evidence of pneumoperitoneum or free fluid. VASCULATURE: No evidence of aortic aneurysm. MUSCULOSKELETAL: No acute osseous abnormalities LYMPH NODES: No gross evidence for lymphadenopathy. SOFT TISSUE/ABDOMINAL WALL: Unremarkable IMPRESSION: No acute intra-abdominal/pelvic process. Please see separate CTA chest results for further details. [facility], , 05/19/2025 8:25 PM
[2025-05-19] MEDS: AMOXIC-POT CLAV 875-125MG 1 EACH TAB PO STA (20:40)
== END 2025-05-19 20:51 | disposition home or self-care (01) ==
LOC: EC 15:36
DX: J18.9 Pneumonia, unspecified organism (principal); R07.89 Other chest pain; R10.9 Unspecified abdominal pain; F17.200 Nicotine dependence, unspecified, uncomplicated
CPT/HCPCS: 36415; 93005; 85379; 83880; 80053; 83690; 83735; 84484; 85025; 85610; 85730; 71046; 70450; 71275; 74177; 99284; 96374; 96375; 96361; G0480; J2060; J2405; J1885; Q9967; 80320; 99285